=== PATIENT | male | born 1990 | race Caucasian/White ===

== ENCOUNTER 2023-12-10 19:24 | Emergency (ER) | payer BC ==
[2023-12-10] MEDS ORDERED: Ibuprofen 200 MG TAB ONE (20:44)
[2023-12-10] MEDS ORDERED: Amoxicillin/Potassium Clav 875 MG TAB ONE (20:54)
== END 2023-12-10 21:52 | disposition home or self-care (01) ==
LOC: CSHERS 19:24
DX: S01.25XA Open bite of nose, initial encounter (principal); S01.451A Open bite of right cheek and temporomandibular area, initial encounter; S01.151A Open bite of right eyelid and periocular area, initial encounter; S01.81XA Laceration without foreign body of other part of head, initial encounter; J45.909 Unspecified asthma, uncomplicated; W54.0XXA Bitten by dog, initial encounter; Y93.89 Activity, other specified; Y92.009 Unspecified place in unspecified non-institutional (private) residence as the place of occurrence of the external cause; Z55.6 Problems related to health literacy
CPT/HCPCS: 70486